=== PATIENT | female | born 1990 | race Caucasian/White ===

== ENCOUNTER → 2020-05-05 09:57 | Outpatient (BNVA) | payer OTHER, SELFPAY | PROVIDERS: PCP Internal Medicine; Referring Provider Internal Medicine; Visit Provider Internal Medicine Endocrinology, Diabetes & Metabolism | DX: E06.3 Autoimmune thyroiditis (principal); E05.00 Thyrotoxicosis with diffuse goiter without thyrotoxic crisis or storm; E55.9 Vitamin D deficiency, unspecified | CPT/HCPCS: 99212 ==

== ENCOUNTER 2021-04-12 08:51 | Outpatient (REF) | payer OTHER, SELFPAY ==
[2021-04-12 10:00] LABS: Free T4 (Free Thyroxine) 0.93 ng/dL (0.71-1.85); Thyroid Stimulating Hormone 1.97 uIU/mL (0.32-4.0)
[2021-04-13 18:02] LABS: Triiodothyronine T3 Total 99 ng/dL (76-181)
[2021-04-17 21:51] LABS: Thyroid Peroxidase Antibodies 46 IU/mL (<9)
[2021-04-18 19:27] LABS: Thyrotropin Receptor Antibody <1.00 IU/L (<=2.00)
[2021-04-23 16:01] LABS: Thyroid Stimulating Immunoglob <89 % baseline (<140)
== END 2021-04-12 08:52 | disposition home or self-care (01) ==
LOC: HO.LAB 08:51
PROVIDERS: PCP Student in an Organized Health Care Education/Training Program; Visit Provider Internal Medicine Endocrinology, Diabetes & Metabolism
DX: E05.00 Thyrotoxicosis with diffuse goiter without thyrotoxic crisis or storm (principal); E55.9 Vitamin D deficiency, unspecified
CPT/HCPCS: 36415; 82306; 83520; 84439; 84443; 84445; 84480; 86376

== ENCOUNTER 2021-05-07 15:16 | Outpatient (REF) | payer OTHER, SELFPAY ==
[2021-05-07 16:44] LABS: Thyroid Stimulating Hormone 1.68 uIU/mL (0.32-4.0)
[2021-05-08 18:11] LABS: Triiodothyronine T3 Total 97 ng/dL (76-181)
== END 2021-05-07 15:17 | disposition home or self-care (01) ==
LOC: HO.LAB 15:16
PROVIDERS: PCP Internal Medicine; Visit Provider Internal Medicine Endocrinology, Diabetes & Metabolism
DX: E05.00 Thyrotoxicosis with diffuse goiter without thyrotoxic crisis or storm (principal)
CPT/HCPCS: 36415; 84439; 84443; 84480

== ENCOUNTER 2021-05-30 08:54 | Outpatient (REF) | payer OTHER, SELFPAY ==
[2021-05-30 09:56] LABS: Alanine Aminotransferase 17 U/L (0-31); Albumin Level 4.2 g/dL (3.5-5.0); Alkaline Phosphatase 66 U/L (39-117); Anion Gap 12 (12-20); Aspartate Amino Transferase 21 U/L (5-31); Bilirubin Total 0.9 mg/dL (0.0-1.0); Blood Urea Nitrogen 11 mg/dL (9-16); Carbon Dioxide 23 mmol/L (22-29); Chloride 110 mmol/L (96-108); Cholesterol 177 mg/dL; Estimated Glomerular Filt Rate > 60; Glucose Fasting 92 mg/dL (60-99); HDL Cholesterol 63 mg/dL; LDL Cholesterol Calculated 102 mg/dl; Potassium 3.8 mmol/L (3.3-5.1); Sodium 141 mmol/L (135-145); Total Protein 7.1 g/dL (6.5-8.0); Triglycerides 63 mg/dL
== END 2021-05-30 08:55 | disposition home or self-care (01) ==
LOC: HO.LAB 08:54
PROVIDERS: PCP Internal Medicine; Visit Provider Internal Medicine
DX: Z82.49 Family history of ischemic heart disease and other diseases of the circulatory system (principal)
CPT/HCPCS: 36415; 80053; 80061

== ENCOUNTER 2022-02-13 12:08 | Outpatient (REF) | payer OTHER, SELFPAY ==
[2022-02-13 13:23] LABS: Free T4 (Free Thyroxine) 0.91 ng/dL (0.71-1.85); Thyroid Stimulating Hormone 1.93 uIU/mL (0.32-4.0)
== END 2022-02-13 12:09 | disposition home or self-care (01) ==
LOC: HO.LAB 12:08
PROVIDERS: PCP Internal Medicine; Visit Provider Internal Medicine Endocrinology, Diabetes & Metabolism
DX: E05.00 Thyrotoxicosis with diffuse goiter without thyrotoxic crisis or storm (principal)
CPT/HCPCS: 36415; 84439; 84443

== ENCOUNTER → 2022-02-14 14:10 | Outpatient (BNVA) | payer OTHER, SELFPAY | PROVIDERS: PCP Internal Medicine; Visit Provider Internal Medicine Endocrinology, Diabetes & Metabolism | DX: E05.00 Thyrotoxicosis with diffuse goiter without thyrotoxic crisis or storm (principal) | CPT/HCPCS: 99212 ==

== ENCOUNTER 2023-01-09 14:39 | Outpatient (AMB) | payer OTHER, SELFPAY ==
[2023-01-09 14:50] VITALS: BP 98/70; PULSE 76; O2SAT 100; BMI 27.8
--- NOTE | 2023-01-09 14:50 | MHC.PC.OV ---
Vital Signs 01/09/23 14:50 Height 5 ft 2 in Weight 152 lb BMI 27.8 BP 98/70 Blood Pressure Location Lt brachial Position Sitting Pulse 76 Pulse Source Pulse Oximeter Temp Source Skin Pulse Oximetry (%) 100 Oxygen Delivery Method Room Air Intake Visit Reasons: PE Allergies latex [Latex] Allergy (Intermediate, Verified 01/09/23 14:57) Rash mold, insect,dust Allergy (Intermediate, Uncoded 01/09/23 14:57) rash Medication List - Last Reconciled 01/09/23 by CODY Pate bupropion HCl 150 mg PO QAM cholecalciferol (vitamin D3) 25 mcg PO DAILY 90 days hydroxyzine HCl 50 mg PO BID prazosin 2 mg PO BID Tobacco use date assessed: 01/09/23 Dental Screening Dental Screen Date: 01/09/23 Did you have a dental visit in the last 12 months?: Yes Did you have a dental problem in the last 6 months where you did not have access to dental care?: No Was dental information given to patient?: Patient has dentist HPI PE HPI Details Patient is a 32-year-old female who presents today for physical exam. Patient of Dr. Ramirez. Medical history significant for Graves disease in remission-was seen by [facility] in the past, Nick's disease, GERD, anxiety, depression. Mental health conditions are followed by Psychiatry and counseling. Patient denies shortness of breath or chest pain. She reports normal Pap smear in 2021 with [facility]. Patient reports sweating in armpits for the past 1 year now despite using [id number]-[id number] deodorant, also she reports increased pigmentation in her right armpit, she reports that [facility] gave her new cream for this increased pigmentation area, she will try this. Patient is due for blood work. Up-to-date with tetanus vaccine. [facility] Medical History Anxiety Family history of hypertension GERD (gastroesophageal reflux disease) Graves' disease in remission Nick's disease Mild recurrent major depression Seasonal allergies Vitamin D deficiency Surgical History Hx of section Family History Father Thyroid disease Mother Asthma Hypertension Social History Housing: Apartment Alcohol intake: current Alcohol intake frequency: holidays/special occasions only Alcohol type: wine Patient Tobacco Use Status: Never used Tobacco e-Cigarette/Vaping Use: Never Used Second Hand Smoke Exposure: No Current occupational status: employed and disabled Cognitive needs: No Hearing needs: No Vision needs: No Questionnaire PHQ-9 Over the last 2 weeks, how often have you been bothered by any of the following problems? 1. Little interest or pleasure in doing things: not at all 2. Feeling down, depressed, or hopeless: not at all 3. Trouble falling or staying asleep, or sleeping too much: not at all 4. Feeling tired or having little energy: not at all 5. Poor appetite or overeating: not at all 6. Feeling bad about yourself - or that you are a failure or have let yourself or your family down: not at all 7. Trouble concentrating on things, such as reading the newspaper or watching television: not at all 8. Moving or speaking so slowly that other people could have noticed. Or the opposite - being so fidgety or restless that you have been moving around a lot more than usual: not at all 9. Thoughts that you would be better off or of hurting yourself in some way: not at all Total score: 0 Depression Screening Interpretation: Negative 20033 - PHQ-9 Billing: Yes Source: Developed by Drs. Mauricio Olsen, Emily Solis, Dipak Montano and colleagues, with an educational antonio from [employer]. Thrive Questionnaire Date Thrive assessed: 05/16/21 AUDIT C Alcohol Use Questionnaire (AUDIT-C) 1. How often do you have a drink containing alcohol?: Monthly or less 2. How many drinks containing alcohol do you have on a typical day when you are drinking?: 1 or 2 3. How often do you have six or more drinks on one occasion?: Never Total Score: 1 Score Reviewed/Action Taken: No AR-7 AMB Questionnaire AR-7 Date AR - 7 assessed: 01/09/23 Feeling nervous, anxious, or on edge: 0 = Not at all Not being able to stop or control worryin = Not at all Worrying too much about different things: 0 = Not at all Trouble relaxin = Not at all Being so restless that it is hard to sit still: 0 = Not at all Becoming easily annoyed or irritable: 0 = Not at all Feeling afraid as if something awful might happen: 0 = Not at all Total AR-7 score (0-4 normal; 5-9 mild; 10-14 moderate; 15-21 severe): 0 Source: Developed by Drs. Mauricio Olsen, Emily Solis, Dipak Montano and colleagues, with an educational natonio from [employer]. AR-7 Assessment Billing AR-7 Assessment Tool: AR-7 Assessment 60872 Review of Systems Const Denies body aches, Denies chills, Denies fever(s) and Denies headache(s) Eyes Denies change in vision ENT Denies dizziness, Denies otalgia, Denies headache(s), Denies nasal discharge, Denies sinus pain and Denies sore throat Card Denies chest pain, Denies edema, Denies lightheadedness and Denies dyspnea Resp Denies cough and Denies dyspnea GI Denies constipation, Denies diarrhea, Denies nausea and Denies vomiting Denies dysuria Musc Denies myalgias Skin/Breast Reports rash Neuro Denies dizziness and Denies headache(s) Physical exam (Primary Care) Vital Signs: Last Vital Signs Pulse 76 01/09/23 14:50 BP 98/70 01/09/23 14:50 Pulse Ox 100 01/09/23 14:50 Oxygen Delivery Method Room Air 01/09/23 14:50 BMI result Body Mass Index 27.8 Tobacco/Smoking Status: Tobacco use Status Tobacco use date assessed 01/09/23 01/09/23 14:55 Patient Tobacco Use Status Never used Tobacco 01/09/23 14:55 e-Cigarette/Vaping Use Never Used 01/09/23 14:55 PHQ-9: PHQ-9 Score PHQ-9: Total score 0 01/09/23 14:55 Depression Screening Interpretation: Negative Thrive Assessment: Date of Thrive Assessment Date Thrive assessed 05/16/21 01/09/23 14:55 Const General: cooperative and no acute distress Orientation/consciousness: patient oriented x3 HENMT Head: Yes normocephalic and Yes atraumatic Ears: TM's normal bilaterally Face and sinus: Yes sinuses nontender Mouth: oropharynx normal and moist mucous membranes Throat: Yes posterior oropharynx normal Eyes General: appearance normal, both eyes and all related structures Pupils: Equal, round and reactive pupils present EOM: EOMs intact bilaterally Neck Neck: Yes normal visual inspection, Yes full ROM and Yes no lymphadenopathy Thyroid: Thyroid normal Resp Effort & Inspection: normal respiratory effort and able to speak in complete sentences Auscultation: clear to auscultation bilaterally, no crackles, no rales, no rhonchi and no wheezes Cardio Rate: regular rate Rhythm: regular rhythm Heart sounds: S1 normal heart sound present, S2 normal heart sound present and no murmurs GI Palpation (GI): Soft to palpation, not firm, nontender, no guarding, not rigid and no hepatosplenomegaly Auscultation: normal bowel sounds General: No CVA tenderness Back/Spine/Pelvis Back: No CVA tenderness Skin Other: Right armpit with slight increased pigmentation about 3cm Neuro General: patient oriented x3 Cranial nerves: Yes Equal, round and reactive pupils present Gait exam (Neuro): Normal gait present Extrem General: Yes full ROM and No edema Assessment and Plan Assessment & Plan (1) Adult general medical exam: Code(s): Z00.00 - Encounter for general adult medical examination without abnormal findings (2) Mild recurrent major depression: Code(s): F33.0 - Major depressive disorder, recurrent, mild Plan: Continue treatment as prescribed by Psychiatry - patient will call with medication list Continue to follow-up with counseling (3) Anxiety: Code(s): F41.9 - Anxiety disorder, unspecified Plan: Same as above (4) Nick's disease: Code(s): E06.3 - Autoimmune thyroiditis Plan: Will check thyroid blood work (5) GERD (gastroesophageal reflux disease): Code(s): K21.9 - Gastro-esophageal reflux disease without esophagitis Plan: Diet controlled Avoid GERD trigger foods Do not lay down 2-3 hours after evening meal (6) Overweight (BMI 25.0-29.9): Code(s): E66.3 - Overweight Plan: Healthy food choices and exercise as tolerated Orders: Orders Vitamin B12 and Folate Today Z00.00 - Encounter for general adult medical examination without abnormal findings Comprehensive [place]. Panel Fast Today Z00.00 - Encounter for general adult medical examination without abnormal findings Lipid Panel Today Z00.00 - Encounter for general adult medical examination without abnormal findings TSH reflex Free T4 Today Z00.00 - Encounter for general adult medical examination without abnormal findings Vitamin D 25-OH Total Today Z00.00 - Encounter for general adult medical examination without abnormal findings Complete Blood Count Auto Diff Today Z00.00 - Encounter for general adult medical examination without abnormal findings Coding Level of Care Code Est Pt Prev Care 18-39y(68571) Diagnoses Adult general medical exam Z00.00 Mild recurrent major depression F33.0 Anxiety F41.9 Nick's disease E06.3 GERD (gastroesophageal reflux disease) K21.9 Overweight (BMI 25.0-29.9) E66.3 Additional Codes AR-7 Assessment Billing - AR-7 Assessment Tool: AR-7 Assessment [id number] ([id number])
== END 2023-01-09 15:24 | disposition home or self-care (01) ==
PROVIDERS: PCP Internal Medicine; Visit Provider Nurse Practitioner Family
DX: Z00.00 Encounter for general adult medical examination without abnormal findings (principal); F33.0 Major depressive disorder, recurrent, mild; F41.9 Anxiety disorder, unspecified; E06.3 Autoimmune thyroiditis; K21.9 Gastro-esophageal reflux disease without esophagitis; E66.3 Overweight; Z68.27 Body mass index [BMI] 27.0-27.9, adult
CPT/HCPCS: 99395

== ENCOUNTER 2023-01-13 14:08 | Outpatient (REF) | payer OTHER, SELFPAY ==
[2023-01-13 14:30] LABS: MANUAL DIFF FLAG NO
[2023-01-13 14:35] LABS: Basophils Percent Auto 0.4 % (0-2); Eosinophils Absolute Auto 0.1 X10*3/uL (0.0-0.4); Eosinophils Percent Auto 1.3 % (0-4); Hematocrit 31.3 % (37.0-47.0); Hemoglobin 9.9 g/dl (12.0-16.0); Imm Gran Abs Auto 0.01 X10*3/uL (0.00-0.03); Imm Gran Pct Auto 0.2 % (0.0-0.4); Lymphocytes Absolute Auto 2.2 X10*3/uL (1.2-4.9); Lymphocytes Percent Auto 39.5 % (20-40); Mean Corpuscular HGB Conc 31.6 g/dl (31.0-35.0); Mean Platelet Volume 11.9 fL (9.4-12.3); Monocytes Absolute Auto 0.3 X10*3/uL (0.1-1.2); Monocytes Percent Auto 5.8 % (2-11); Neutrophils Absolute Auto 2.9 x10*3/uL (2.0-8.3); Neutrophils Percent Auto 52.8 % (45-73); Platelet Count 235 X10*3/uL (160-400); Red Blood Count 4.12 X10*6/uL (4.20-5.50); Red Cell Distribution Width 17.9 % (11.0-16.0); White Blood Count 5.5 X10*3/uL (4.8-10.8)
[2023-01-13 15:37] LABS: Alanine Aminotransferase 10 U/L (0-31); Albumin Level 4.1 g/dL (3.5-5.0); Alkaline Phosphatase 53 U/L (39-117); Anion Gap 10 (12-20); Aspartate Amino Transferase 16 U/L (5-31); Bilirubin Total 0.6 mg/dL (0.0-1.0); Blood Urea Nitrogen 8 mg/dL (9-16); Calcium 9.5 mg/dL (8.4-10.2); Carbon Dioxide 25 mmol/L (22-29); Chloride 109 mmol/L (96-108); Cholesterol 174 mg/dL; Estimated Glomerular Filt Rate > 60; Glucose Fasting 87 mg/dL (60-99); HDL Cholesterol 58 mg/dL; LDL Cholesterol Calculated 105 mg/dl; Potassium 3.7 mmol/L (3.3-5.1); Sodium 140 mmol/L (135-145); Total Protein 6.8 g/dL (6.5-8.0); Triglycerides 59 mg/dL
[2023-01-13 15:55] LABS: TSH reflex Free T4 1.58 uIU/mL (0.32-4.0); Vitamin D 25-OH Total 25.1 ng/mL (>30)
[2023-01-13 16:03] LABS: Folate 10.6 ng/mL (> or = 4.0); Vitamin B12 315 pg/mL (200-900)
== END 2023-01-13 14:09 | disposition home or self-care (01) ==
LOC: HO.LAB 14:08
PROVIDERS: PCP Internal Medicine; Visit Provider Nurse Practitioner Family
DX: Z00.00 Encounter for general adult medical examination without abnormal findings (principal)
CPT/HCPCS: 36415; 80053; 80061; 82306; 82607; 82746; 84443; 85025

== ENCOUNTER 2023-01-29 13:22 | Outpatient (REF) | payer OTHER, SELFPAY ==
[2023-01-29 14:33] LABS: Iron 26 mcg/dL (30-160); Percent Iron Saturation 7 % (15-50); Total Iron Binding Capacity 381 mcg/dL (228-428); Unsaturated Iron Binding 355 ug/dL
== END 2023-01-29 13:23 | disposition home or self-care (01) ==
LOC: HO.LAB 13:22
PROVIDERS: Visit Provider Nurse Practitioner Family
DX: D64.9 Anemia, unspecified (principal)
CPT/HCPCS: 36415; 83540

== ENCOUNTER 2023-02-10 15:42 | Outpatient (AMB) | payer OTHER, SELFPAY ==
[2023-02-10 16:38] VITALS: BP 108/64; PULSE 81; TEMP 36.8; O2SAT 100; BMI 28.3
--- NOTE | 2023-02-10 16:38 | AM.OFFWIN_ITS ---
Intake Vital Signs 02/10/23 16:38 Height 5 ft 2 in Weight 155 lb BMI 28.3 BP 108/64 Blood Pressure Location Lt brachial Position Sitting Pulse 81 Pulse Source Pulse Oximeter Temp 98.3 F Temp Source Temporal Artery Scan Pulse Oximetry (%) 100 Intake Visit Reasons: EP RT Side Upper Quad pain Intake Note: pt is here for RT side upper ribs area with pain and tightening 4x days. denies injury Patient Tobacco Use Status: Never used Tobacco Allergies latex [Latex] Allergy (Intermediate, Verified 02/10/23 19:24) Rash mold, insect,dust Allergy (Intermediate, Uncoded 02/10/23 19:24) rash Medication List - Last Reconciled 02/10/23 by Jayro Coto MD ascorbic acid (vitamin C) 250 mg PO DAILY bupropion HCl 150 mg PO QAM cholecalciferol (vitamin D3) 25 mcg PO DAILY 90 days cyclobenzaprine 10 mg PO BEDTIME ferrous sulfate 324 mg PO DAILY hydroxyzine HCl 50 mg PO BID meloxicam 15 mg PO DAILY omalizumab (Xolair) mg subcut Do you need a note to return to daycare/school/sports/work: No HPI EP RT Side Upper Quad pain HPI Details 32-year-old female presents to the office for a sick visit. Patient is complaining of pain on the right side of her chest for the past few days. Pain is worse when she lifts her arm over her head. Bending towards the left side aggravates her pain. PFSH Medical History Anxiety Family history of hypertension GERD (gastroesophageal reflux disease) Graves' disease in remission Nick's disease Mild recurrent major depression Seasonal allergies Vitamin D deficiency Surgical History Hx of section Family History Father Thyroid disease Mother Asthma Hypertension Social History Housing: Apartment Alcohol intake: current Alcohol intake frequency: holidays/special occasions only Alcohol type: wine Patient Tobacco Use Status: Never used Tobacco e-Cigarette/Vaping Use: Never Used Second Hand Smoke Exposure: No Current occupational status: employed and disabled Cognitive needs: No Hearing needs: No Vision needs: No Physical Exam Vital Signs: Last Vital Signs Temp 98.3 F 02/10/23 16:38 Pulse 81 02/10/23 16:38 BP 108/64 02/10/23 16:38 Pulse Ox 100 02/10/23 16:38 BMI result Body Mass Index 28.3 Chest Other: Examination done with a female clinic office assistant in the room. Chest: Pleural visible rash. Eight 9th ribs are tender to touch. Assessment & Plan Assessment & Plan (1) Chondritis: Code(s): M94.8X9 - Other specified disorders of cartilage, unspecified sites Plan: Meloxicam and cyclobenzaprine called in. If symptoms not better to follow-up here. Medications: New meloxicam 15 mg PO DAILY 14 tabs 0RF cyclobenzaprine 10 mg PO BEDTIME 14 tabs 0RF Coding Level of Care Code Est Pt Level 3 (55384) Diagnoses Chondritis M94.8X9
== END 2023-02-10 16:53 | disposition home or self-care (01) ==
PROVIDERS: PCP Internal Medicine; Visit Provider Internal Medicine
DX: M94.8X9 Other specified disorders of cartilage, unspecified sites (principal)
CPT/HCPCS: 99213

== ENCOUNTER 2023-03-24 09:08 | Outpatient (REF) | payer OTHER, SELFPAY ==
[2023-03-24 10:01] LABS: Hematocrit 35.6 % (37.0-47.0); Hemoglobin 11.4 g/dl (12.0-16.0); Mean Corpuscular Hemoglobin 24.9 pg (27.0-33.0); Mean Corpuscular Volume 77.9 fL (80.0-98.0); Mean Platelet Volume 11.9 fL (9.4-12.3); Platelet Count 245 X10*3/uL (160-400); Red Blood Count 4.57 X10*6/uL (4.20-5.50); Red Cell Distribution Width 21.2 % (11.0-16.0); White Blood Count 6.4 X10*3/uL (4.8-10.8)
[2023-03-24 10:49] LABS: Vitamin D 25-OH Total 33.4 ng/mL (>30)
== END 2023-03-24 09:09 | disposition home or self-care (01) ==
LOC: HO.LAB 09:08
PROVIDERS: PCP Nurse Practitioner Family; Visit Provider Nurse Practitioner Family
DX: D64.9 Anemia, unspecified (principal); E55.9 Vitamin D deficiency, unspecified
CPT/HCPCS: 36415; 82306; 85027

== ENCOUNTER 2023-05-14 09:31 | Outpatient (AMB) | payer OTHER, SELFPAY ==
--- NOTE | 2023-05-14 09:41 | A.OFFVIS_ITS ---
Intake VS Expanded 05/14/23 09:43 05/20/23 09:58 Height 5 ft 2 in 5 ft 2 in Weight 153 lb 14.122 oz 154 lb BMI 28.1 28.2 Intake Visit Reasons: Obesity Allergies latex [Latex] Allergy (Intermediate, Verified 02/10/23 19:24) Rash mold, insect,dust Allergy (Intermediate, Uncoded 02/10/23 19:24) rash HPI Nutrition Presentation Details Pt presents for MNT for overweight Pt wants to work on healthier eating pattern. Pt motivated GIX-Cxgfegx-Zf.Jeor Equation Height 5 ft 2 in Weight 154 lb Resting Metabolic Rate 1353.80 Calculated Activity Level Sedentary Calories Needed to Maintain Weight 1624.56 Diagnosis Nutrition problem #1 food nutri know defi As related to (etiology) #1 diagnosis As evidenced by (sign/symptom) #1 no prior educ - nutri rec Monitoring/Goals Nutrition problem monitoring level of knowledge/skill Outcome progress verbalized understanding Most Recent Diabetes Results: Cholesterol 174 mg/dL 01/13/23 HDL Cholesterol 58 mg/dL 01/13/23 Triglycerides 59 mg/dL 01/13/23 Creatinine 0.74 mg/dL (0.5-1.4) 01/13/23 Blood Urea Nitrogen 8 mg/dL (9-16) L 01/13/23 Sodium 140 mmol/L (135-145) 01/13/23 Potassium 3.7 mmol/L (3.3-5.1) 01/13/23 Chloride 109 mmol/L (96-108) H 01/13/23 Carbon Dioxide 25 mmol/L (22-29) 01/13/23 Calcium 9.5 mg/dL (8.4-10.2) 01/13/23 AST 16 U/L (5-31) 01/13/23 ALT 10 U/L (0-31) 01/13/23 Total Protein 6.8 g/dL (6.5-8.0) 01/13/23 Albumin 4.1 g/dL (3.5-5.0) 01/13/23 [facility] Medical History Anxiety Family history of hypertension GERD (gastroesophageal reflux disease) Graves' disease in remission Nick's disease Mild recurrent major depression Seasonal allergies Vitamin D deficiency Surgical History Hx of section Family History Father Thyroid disease Mother Asthma Hypertension Housing: Apartment Alcohol intake: current Alcohol intake frequency: holidays/special occasions only Alcohol type: wine Patient Tobacco Use Status: Never used Tobacco e-Cigarette/Vaping Use: Never Used Second Hand Smoke Exposure: No Current occupational status: employed and disabled Cognitive needs: No Hearing needs: No Vision needs: No Assessment & Plan Assessment & Plan (1) Overweight (BMI 25.0-29.9): Code(s): E66.3 - Overweight Plan: wt: 76.8 kg Est kcal needs as per MSJ: 1600 (40% carb, 30% protein/fat) Est fluid needs as per 25-30 ml/d: 1900- 2300 Est prot per day as per 1 g/kg bw: 77g Recommend fiber intake : 8-10 g per day and gradually increase to 25-28 g per day for women and 35-38 g for men or as tolerated Recommend sodium intake per day : less than 1500 mg less than 2000 mg Educated patient on: ( R = reviewed V = verbalizes understanding N/R = needs review N/A = not applicable * Food sources of carbohydrate, adequate serving sizes and its role in various health conditions: R V R/V * Differences between complex carbohydrates a simple carbohydrates, role of fiber in diet: R V R/V * Differences between types of fats and role in diet (mono on saturated fat fatty acids, saturated fatty acids, trans fats): R V R/V * Food sources of sodium in salt and healthy modifications for heart health in kidney health: R V R/V * Vitamins and minerals: R V R/V * Healthy plate method concept: R V R/V * Physical activity: Benefits a precaution: R V R/V * Hypoglycemia protocol (rule of 15): R V R/V * Dietary prevention of Hyperglycemia: R V R/V Patient Instructions: Follow healthy plate method at dinner Choose low fat cooking methods keep a food record to next follow up appt Coding Level of Care Code Nutr Indiv Intake (70127) Diagnoses Overweight (BMI 25.0-29.9) E66.3 Time Spent (min) 30
[2023-05-14 09:43] VITALS: BMI 28.1
[2023-05-20 09:58] VITALS: BMI 28.2
== END 2023-05-14 10:15 | disposition home or self-care (01) ==
PROVIDERS: PCP Internal Medicine; Visit Provider Dietitian, Registered
DX: E66.3 Overweight (principal)

== ENCOUNTER → 2023-05-14 09:31 | Outpatient (BNVA) | payer OTHER, SELFPAY | PROVIDERS: PCP Internal Medicine; Visit Provider Dietitian, Registered | DX: E66.3 Overweight (principal); E06.3 Autoimmune thyroiditis; Z68.28 Body mass index [BMI] 28.0-28.9, adult; Z71.3 Dietary counseling and surveillance | CPT/HCPCS: 97802 ==

== ENCOUNTER 2023-09-23 17:02 | Outpatient (AMB) | payer OTHER, SELFPAY ==
--- NOTE | 2023-09-23 17:11 | A.OFFPC_ITS ---
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: No Accompanied by: children Allergies latex [Latex] Allergy (Intermediate, Verified 09/23/23 17:32) Rash mold, insect,dust Allergy (Intermediate, Uncoded 09/23/23 17:32) rash Medication List - Last Reconciled 09/23/23 by Faviola Vasquez MD ascorbic acid (vitamin C) 250 mg PO DAILY bupropion HCl 150 mg PO QAM cholecalciferol (vitamin D3) 25 mcg PO DAILY 90 days omalizumab (Xolair) mg subcut Tobacco use date assessed: 07/31/23 HPI HPI Comments History of Present Illness Details This is a 32-year-old female with Nick's disease and mild recurrent major depression as well as low vitamin-D that comes today complaining of hyperhidrosis in axillary area. This has been present for over 4 months. Denies any chest pain or shortness of breath. TSH will be order. Depression stable with bupropion. On vitamin-D supplements for her low vitamin-D. No chest pain or shortness of breath. [facility], [facility] Medical History (Updated 09/23/23 @ 19:36 by Faviola Vasquez MD) Mild recurrent major depression Family history of hypertension Anxiety Seasonal allergies GERD (gastroesophageal reflux disease) Nick's disease Vitamin D deficiency Graves' disease in remission Surgical History Hx of section Family History Father Thyroid disease Mother Asthma Hypertension Social History Housing: Apartment Alcohol intake: current Alcohol intake frequency: holidays/special occasions only Alcohol type: wine Patient Tobacco Use Status: Never used Tobacco e-Cigarette/Vaping Use: Never Used Second Hand Smoke Exposure: No service: No Current occupational status: employed and disabled Cognitive needs: No Hearing needs: No Vision needs: No Questionnaire Thrive Questionnaire Date Thrive assessed: 07/31/23 AR-7 AMB Questionnaire AR-7 Date AR - 7 assessed: 07/31/23 Source: Developed by Drs. Mauricio Olsen, Emily Slois, Dipak Montano and colleagues, with an educational antonio from [employer]. Review of Systems Const All systems reviewed & are unremarkable except as noted in HPI and below Eyes Reports no additional complaints, Denies change in vision and Denies other visual disturbances Card Denies chest pain at rest, Denies chest pain with activity, Denies edema, Denies irregular heart rhythm, Denies claudication, Denies dyspnea, Denies dyspnea on exertion, Denies orthopnea, Denies paroxysmal nocturnal dyspnea and Denies slow heart rate Resp Denies cough, Denies dyspnea and Denies dyspnea on exertion GI Denies abdominal pain, Denies change in bowel habits, Denies excessive flatus, Denies nausea and Denies vomiting Denies urinary incontinence, Denies urinary hesitancy and Denies urinary urgency Physical exam (Primary Care) Vital Signs: Last Vital Signs BP 124/76 09/23/23 17:12 BMI result Body Mass Index 30.4 Tobacco/Smoking Status: Tobacco use Status Tobacco use date assessed 07/31/23 09/23/23 17:18 Patient Tobacco Use Status Never used Tobacco 09/23/23 17:18 e-Cigarette/Vaping Use Never Used 09/23/23 17:18 Thrive Assessment: Date of Thrive Assessment Date Thrive assessed 07/31/23 09/23/23 17:18 Resp Effort & Inspection: normal respiratory effort Auscultation: clear to auscultation bilaterally Cardio Jugular venous distension: no JVD Rate: regular rate Rhythm: regular rhythm Heart sounds: S1 normal heart sound present and S2 normal heart sound present Extrem General: Yes full ROM Assessment and Plan Assessment & Plan (1) Mild recurrent major depression: Code(s): F33.0 - Major depressive disorder, recurrent, mild Plan: Continue bupropion. (2) Hyperhidrosis: Code(s): R61 - Generalized hyperhidrosis Plan: Start cream. 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 (4) Vitamin D deficiency: Code(s): E55.9 - Vitamin D deficiency, unspecified Plan: Continue vitamin-D supplement. Orders: Orders Vitamin D 25-OH Total 4 Months E55.9 - Vitamin D deficiency, unspecified Thyroid Stimulating Hormone 4 Months E06.3 - Autoimmune thyroiditis Free T4 (Free Thyroxine) 4 Months E06.3 - Autoimmune thyroiditis Lipid Panel 4 Months E66.9 - Obesity, unspecified Complete Blood Count Auto Diff 4 Months D64.9 - Anemia, unspecified IRON PROFILE 4 Months D64.9 - Anemia, unspecified Comprehensive [place]. Panel Fast 4 Months K21.9 - Gastro-esophageal reflux disease without esophagitis Medications: New aluminum chloride 20% (Drysol) 1 appl topical 2XW 30 days PRN 37.5 mL 2RF excessive sweating Coding Level of Care Code Est Pt Level 4 (75258) Diagnoses Mild recurrent major depression F33.0 Hyperhidrosis R61 Nick's disease E06.3 Vitamin D deficiency E55.9 Time Spent (min) 20
[2023-09-23 17:12] VITALS: BP 124/76; BMI 30.4
== END 2023-09-23 17:29 | disposition home or self-care (01) ==
PROVIDERS: PCP Internal Medicine; Visit Provider Internal Medicine
DX: F33.0 Major depressive disorder, recurrent, mild (principal); R61 Generalized hyperhidrosis; E06.3 Autoimmune thyroiditis; E55.9 Vitamin D deficiency, unspecified
CPT/HCPCS: 99214